=== PATIENT | male | born 1980 | race Caucasian/White ===

== ENCOUNTER 2016-12-19 19:00 | Inpatient (IN) | payer MEDICAID ==
[~2016-12-19] VITALS: Ht 177.8 cm; Wt 58.1 kg
--- NOTE | ~2016-12-19 | PN ---
Unit #: [id number] #: [id number] Patient: EVANS GEE [id number] [facility] [address] [place] [address] [id number] MR#: [id number] NAME: EVANS GEE ROOM: P211 Age: 36 Sex: M Admission Date: 12/20/2016 : 1980 Attending Physician: Ishan Rodney M.D. Admitting Physician: Ishan Rodney M.D. Primary Care Physician: Ruddy Doctor Not In System [facility] PROGRESS NOTES DATE OF SERVICE 12/21/2016 DISCUSSION Mr. Gee is a 36-year-old white male who was seen today. Chart was reviewed and case was discussed with the staff. He has been anxious, restless, unkempt, disheveled, and in acute distress and discomfort as he goes through detox. Meanwhile, he has been taking the medications and tolerating them fairly well with no reported side effects. MENTAL STATUS EXAMINATION Young white male who is casually dressed with marginal personal hygiene, appears to be in slight distress and discomfort. He was awake and alert with impaired attention and concentration. His mood is anxious with congruent affect. He denies any suicidal or homicidal ideations and also denies any auditory or visual hallucinations. His insight and judgment remain slightly impaired. TREATMENT PLAN 1. We will continue him on his current medications and treatment protocol. We will maintain his detox level of care. We will monitor his response and make further adjustments as needed. 2. We will continue to follow up. Dictated by... Yaneth Sotomayor/jorge luis TD: 12/22/2016 07:56 JOB #: [id number] Unit #: [id number] #: [id number] [facility] PRO[facility] NOTES Page 1 of 1 X Ishan Rodney MD PROGRESS NOTE
--- NOTE | ~2016-12-19 | A ---
[facility] Nutrition Therapy DATE: 12/21/16 Patient: EVANS GEE Physician: AGNIESZKAF Address: NO PERMANENT ADDRESS Room/Bed: [address], Zip: [place] [address] Admit Date: 12/20/16 Date of : [birth year] Height: 5 10 Weight: [phone] NUTRITIONAL ASSESSMENT: REASON: LOW BMI (18.4) PATIENT ADMITTED FOR ANXIETY, DEPRESSION, SUBSTANCE ABUSE PMH: HEP C Anthropometrics: HT: 70", WT: 128#, BMI: 18.4 Labs: NO LABS AVAILABLE Meds: BUSPAR, WELLBUTRIN, DESYREL Assessment: PATIENT IS A 36 Y/O MALE ADMITTED FOR ANXIETY, DEPRESSION, AND SUBSTANCE ABUSE. PATIENT IS CURRENTLY UNEMPLOYED, HOMELESS, SMOKES 1 PPD, AND HAS VERY FREQUENT METH USE. PRIOR TO ADMIT, HE HAD BEEN NON-COMPLIANT WITH HIS MEDICATION. UPON ADMIT PATIENT STATED A POOR APPETITE WITH A 30# WEIGHT LOSS X LAST SEVERAL MONTHS. THERE IS NO WEIGHT HX RECORDED IN [facility]. NURSING REPORTS FAIR PO INTAKES. CURRENT PSYCH MEDS MAY CAUSE IN INCREASE IN WEIGHT AND APPETITE, WHICH IS DESIRED. THERE ARE NO SKIN OR GI ISSUES NOTED ATT. PATIENT IS ON A REGULAR DIET WITH NO CAFFEINE. Dx: INADEQUATE NUTRIENT INTAKE R/T DEPRESSION, SUBSTANCE ABUSE AEB LOW BMI, SELF-REPORTED WEIGHT LOSS Intervention: REGULAR DIET WITH NO CAFFEINE, MEDS PER MD, PSYCH Monitoring, Evaluation and Goals: 1. ADEQUATE PO INTAKES >50-75% OF MEALS 2. PREVENT, CORRECT MICRO/MACRO NUTRIENT DEFICIENCIES 3. WEIGHT; PROMOTE A STEADY WEIGHT GAIN TOWARDS A HEALTHY BMI OF 19-25, PREVENT WEIGHT LOSS MONITOR: WEIGHTS, LABS, PO/FLUID INTAKES Recommendations: 1. CONTINUE REGULAR DIET WITH NO CAFFEINE TOLERATED. OFFER SNACKS BETWEEN MEALS. WILL INCREASE ENTREES TO LARGER PORTIONS D/T NEED FOR INCREASED CALORIC INTAKE 2. ENCOURAGE ADEQUATE PO AND FLUID INTAKES 3. OBTAIN WEIGHTS ROUTINELY (EVERY 3-4 DAYS) 4. IF PO INTAKES ARE BELOW 50% OF MEALS PLEASE ORDER ENSURE BID TO PROMOTE ADEQUATE [facility] Therapy DATE: 12/21/16 Patient: EVANS GEE Physician: AGNIESZKAF Address: NO PERMANENT ADDRESS Room/Bed: [address], Zip: [place] [address] Admit Date: 12/20/16 Date of : [birth year] Height: 5 10 Weight: [phone] IN[address] TO F/U PER PROTOCOL AND PRN R/T PATIENT MILDLY COMPROMISED Respectfully, WILLAM NAILS, RD, LD [employer] [facility] cc: client file
--- NOTE | ~2016-12-19 | HP ---
Unit #: [id number] #: [id number] Patient: EVANS GEE [id number] [place] [address] [id number] I MR#: [id number] NAME: EVANS GEE ROOM: P211 Age: 36 Sex: M Admission Date: 12/20/2016 : 1980 Attending Physician: Ishan Rodney M.D. Admitting Physician: Ishan Rodney M.D. Primary Care Physician: Generic Doctor Not In System HISTORY AND PHYSICAL HISTORY OF PRESENT ILLNESS The patient is a 36-year-old male who states he is admitted due to anxiety and depression. PAST MEDICAL HISTORY None. PAST SURGICAL HISTORY None. SOCIAL HISTORY Positive for smoking. ALLERGIES The patient states none. FAMILY HISTORY Noncontributory. REVIEW OF SYSTEMS CONSTITUTIONAL: No fever or chills. HEENT: Denies any sore throat, ear pain or runny nose. CARDIOVASCULAR: Denies chest pain, irregular heart rhythm or palpitations. CHEST: Denies shortness of breath or cough. No hemoptysis. GASTROINTESTINAL: Denies nausea, vomiting, diarrhea or chronic constipation. ENDOCRINE: Denies history of increased thirst or urination. No recent significant weight loss or gain. GENITOURINARY: Denies dysuria, frequency, or hematuria. SKIN: Denies any rashes. HEMATOLOGIC: Denies history of increased bleeding or bruising. MUSCULOSKELETAL: Denies any hot, swollen joints. No generalized muscle pain. NEUROLOGIC: Denies problems with vision or speech. No frequent, severe headaches. No numbness, tingling or weakness in any extremities. Denies loss of bladder or bowel control. CURRENT MEDICATIONS None. Unit #: [id number] #: [id number] Patient: EVANS GEE PHYSICAL EXAMINATION GENERAL: Alert, oriented in no acute distress. VITAL SIGNS: Temperature 97.6, heart rate 66, blood pressure 98/72. HEIGHT: 5 feet 10 inches WEIGHT: 128 pounds SKIN: Warm and dry without rash. Tattoo bilateral upper arms and left lower extremity and thoracic lumbar area. HEENT: Normocephalic. TMs not viewed. Oral and nasal passages clear. Conjunctivae clear. PERRLA. EOMs intact. NECK: Supple without lymphadenopathy or thyromegaly. HEART: Regular rate and rhythm without murmur. LUNGS: Clear. ABDOMEN: Soft, nontender, without masses or hepatosplenomegaly. : Not done. EXTREMITIES: No evidence of cyanosis, clubbing or edema. Moves all without focal deficit. NEUROLOGICAL: Grossly within normal limits. Cranial Nerves: II: Visual henning are intact. III, IV AND : Extraocular movements are intact. Pupils are equal, round and reactive to light. V: Facial sensation is grossly normal. VII: Facial movements and expression are normal. VIII: Auditory acuity grossly intact. IX, X: Uvula is midline. Phonation is normal. XI: Patient shrugs shoulders and turns head normally. XII: Tongue protrudes in the midline. Sensory and Motor Function: Sensory and motor sensation is grossly normal. Motor: moves all extremities well. Coordination: Gait is normal. Deep Tendon Reflexes: Intact. IMPRESSION Psychiatric admission RECOMMENDATIONS Psychiatric, per psychiatrist. MEDICAL: I see no contraindications to participating in facility's activities. MEDICAL PROGNOSIS Good. Dictated by... Fatmata August/matthew TD: 12/21/2016 02:41 JOB #: [id number] Unit #: [id number] #: [id number] Patient: EVANS GEE HISTORY AND PHYSICAL Page 1 of 1 X Radha Carlton APR X HISTORY AND PHYSICAL
--- NOTE | ~2016-12-19 | PA ---
Unit #: [id number] #: [id number] Patient: EVANS GEE [id number] [facility] [address] [place] [address] [id number] I MR#: [id number] NAME: EVANS GEE ROOM: P211 Age: 36 Sex: M Admission Date: 12/20/2016 : 1980 Date of Assessment: Attending Physician: Ishan Rodney M.D. Admitting Physician: Ishan Rodney M.D. PSYCHIATRIC ASSESSMENT DATE OF SERVICE 12/20/2016. IDENTIFYING DATA Mr. Gee is a 36-year-old single white male, who is a resident of [place], [place], and was transferred to us from [facility] on a voluntary basis. CHIEF COMPLAINT "I've been really stressed out." HISTORY OF PRESENT ILLNESS Mr. Gee is a 36-year-old white male, who decided to come to the emergency room at [facility] reporting that he has been really stressed out and that sometimes he gets so overwhelmed that he feels like overdosing on methamphetamine. He reports that he has a plan to do that tonight and reports increasing depression, anxiety, multiple psychosocial issues and stressors, poor social support system, feelings of hopelessness and helplessness, and suicidal ideation with a plan to overdose on methamphetamine, and as such, a recommendation for inpatient level of care for safety and stabilization was made and the patient was transferred to us. SUBSTANCE ABUSE HISTORY The patient reports history of methamphetamine dependence and reports that he has been using methamphetamine since he was 17 years old and currently has been using 0.5 g every few days. PAST PSYCHIATRIC HISTORY The patient has not had any prior history of inpatient or outpatient psychiatric treatment. Review of the medical records indicate that currently he is not active in any treatment program, is not seeing a psychiatrist, and is not taking any psychotropic medications. PAST MEDICAL HISTORY Hepatitis C. ALLERGIES No known medication allergies. CURRENT MEDICATIONS None. Unit #: [id number] #: [id number] Patient: EVANS GEE PERSONAL AND SOCIAL HISTORY A 36-year-old white male, who reports that he is single, unemployed, and essentially homeless and has poor social support system. MENTAL STATUS EXAMINATION Young white male, who was casually dressed with fair personal hygiene, appears to be in no acute distress or discomfort. He was awake and alert on interaction with intact orientation to time, place, and person. His mood was anxious and depressed with a congruent affect. His speech was slow and restricted in content. His thought processes were disorganized with some looseness of associations and flight of ideas and suicidal ideations. His insight and judgment remain significantly impaired. DIAGNOSTIC IMPRESSION Psychiatric: Major depressive disorder, recurrent, moderate, without psychotic features and methamphetamine dependence, moderate. Medical: Hepatitis C. Stressors: Moderate psychosocial stressors. TREATMENT PLAN 1. The patient has presented with a history of mood disorder and substance abuse and has been decompensating and will need inpatient hospitalization for safety and stabilization. We will start him back on his home medications and monitor response and make further adjustments as needed. 2. Supportive therapy was provided to the patient. 3. Safe, structured, and nourishing environment will be provided. ESTIMATED LENGTH OF STAY 5 to 7 days. ABILITY TO HELP SELF Limited. WILLINGNESS TO HELP SELF The patient appears to be willing to help self. STRENGTHS 1. Communicative. 2. Cooperative. PROBLEMS 1. Chronic dysphoric symptoms. 2. Chronic chemical dependency. 3. Poor social support system. DISCHARGE CRITERIA This will be contingent upon the patient's ability to show resolution of his depression and anxiety and his ability to stay safe to himself, particularly after discharge from the hospital. Dictated by... Ishan Rodney M.D. JOSE/lulu TD: 12/20/2016 14:20 Unit #: [id number] #: [id number] Patient: EVANS GEE JOB #: [id number] PSYCHIATRIC ASSESSMENT Page 1 of 1 X Ishan Rodney MD X PSYCHIATRIC ASSESSMENT
--- NOTE | ~2016-12-19 | PN ---
Unit #: [id number] #: [id number] Patient: EVANS GEE [id number] [facility] [address] [place] [address] [id number] MR#: [id number] NAME: EVANS GEE ROOM: P211 Age: 36 Sex: M Admission Date: 12/20/2016 : 1980 Attending Physician: Ishan Rodney M.D. Admitting Physician: Ishan Rodney M.D. Primary Care Physician: Ruddy Doctor Not In System [facility] PROGRESS NOTES DATE 12/22/2016 DISCUSSION Mr. Gee is a 36-year-old white male who was seen today and chart was reviewed and case was discussed with the staff. He has been anxious, withdrawn and rather seclusive to himself. Meanwhile, he has been cooperative with treatment recommendations and has been taking the medications and tolerating them fairly well with no reported side effects. MENTAL STATUS EXAMINATION Young white male who was casually dressed with fair personal hygiene and appears to be in no acute distress or discomfort. He was awake and alert on interaction with intact orientation. His mood was anxious with congruent affect. He denies any suicidal or homicidal ideation. His insight and judgement remains slightly impaired. TREATMENT PLAN 1. Will continue his current medications and treatment protocol. Will monitor his response to the medications and make further adjustments as needed. 2. Will continue to follow up. Dictated by... Ishan Rodney M.D. IAA/génesis TD: 12/22/2016 22:32 JOB #: [id number] Unit #: [id number] #: [id number] Patient: EVANS GEE [facility] PROGRESS NOTES Page 1 of 1 X Ishan Rodney MD PROGRESS NOTE
--- NOTE | ~2016-12-19 | DS ---
Unit #: [id number] #: [id number] [facility] [id number] [facility] [address] [place] [address] [id number] MR#: [id number] NAME: EVANS GEE ROOM: P211 Age: 36 Sex: M Admission Date: 12/20/2016 : 1980 Discharge Date: 12/23/2016 Attending Physician: Ishan Rodney M.D. Primary Care Physician: Generic Doctor Not In System DISCHARGE SUMMARY IDENTIFYING DATA Mr. Gee is a 36-year-old single white male, who is a resident of [place], [place], and was self-referred to the hospital on a voluntary basis as a transfer from [facility]. DISCHARGE DIAGNOSES Psychiatric: Major depressive disorder, recurrent, moderate, without psychotic features; methamphetamine dependence, moderate. Medical: Hepatitis C. Stressors: Mild psychosocial stressors. HISTORY OF PRESENT ILLNESS Please see initial psychiatric evaluation for details. PAST PSYCHIATRIC HISTORY Please see initial psychiatric evaluation for details. PAST MEDICAL HISTORY Please see initial psychiatric evaluation for details. HOSPITAL COURSE [facility] and was oriented to the hospital environment. Routine p.r.n. medications were initiated, and he was started on Wellbutrin and BuSpar to help with depression and was closely monitored. He was taking the medications regularly and was tolerating them fairly well and was able to show a fairly decent and therapeutic response with improvement in depression and anxiety and was wanting to go home and was willing to continue treatment on an outpatient basis. DISCHARGE MEDICATIONS Wellbutrin XL 150 mg in the morning for depression and BuSpar 10 mg b.i.d. for anxiety. DISCHARGE CONDITION Stable. PROGNOSIS Fair. Dictated by... Ishan Rodney M.D. Unit #: [id number] #: [id number] Patient: EVANS GEE JOSE/modl TD: 12/23/2016 07:05 JOB #: [id number] DISCHARGE SUMMARY Page 1 of 1 X Ishan Rodney MD X DISCHARGE SUMMARY
== END 2016-12-23 09:53 | disposition home or self-care (01) | DRG 885 ==
LOC: P2S 12-20 00:25
PROC: HZ2ZZZZ Detoxification Services for Substance Abuse Treatment (ICD-10-PCS; principal; 2016-12-20)
DX: F33.1 Major depressive disorder, recurrent, moderate (principal); F15.20 Other stimulant dependence, uncomplicated